=== PATIENT | male | born 1990 | race Hispanic/Latino ===

== ENCOUNTER → 2018-12-23 | Outpatient (CLI) | payer BC ==
[~2018-12-23] MED LIST: ATROPINE SULFATE 0.1 MG/ML 10ML SYR ONE
--- NOTE | 2018-12-23 09:13 | Diagnostic Imaging Report ---
Exam: KUB - 2 views Indication: Hematuria Comparison: None Findings: No radiographically apparent renal calculi. Nonobstructive bowel gas pattern. No free air. Osseous structures appear unremarkable. Impression: No radiographically apparent renal calculi. Signed by: Anjelica Kirkpatrick MD on 12/23/2018 9:09 AM
--- NOTE | 2018-12-23 09:17 | Diagnostic Imaging Report ---
EXAM: Renal Ultrasound INDICATION: ^[id number] ^[id number] ^MICROSCOPIC HEMATURIA COMPARISON: KUB of earlier the same day TECHNIQUE: Transverse and longitudinal images of the kidneys and bladder were obtained. FINDINGS: Right Kidney: Length: 11.5 cm Appearance: Normal echogenicity. Collecting system: No hydronephrosis Stones: None Cyst/Mass: None Left Kidney: Length: 11.1 cm Appearance: Normal echogenicity. Collecting system: No hydronephrosis Stones: None Cyst/Mass: None Bladder: No mass or calculi. Bilateral ureteral jets visualized. Prevoid volume estimate of 474cc. IMPRESSION: No hydronephrosis, renal calculi, or solid renal mass lesion. Signed by: Anjelica Kirkpatrick MD on 12/23/2018 9:13 AM
== END ==
LOC: US 07:58
PROVIDERS: ATTEND Urology
DX: R31.21 Asymptomatic microscopic hematuria (principal)
CPT/HCPCS: 74018; 76770